=== PATIENT | male | born 1940 | race Caucasian/White ===

== ENCOUNTER 2023-01-04 12:16 | Emergency (ER) | payer MEDICARE, SELFPAY ==
[2023-01-04 12:27] VITALS: BP 105/55; PULSE 75; RESP 16; TEMP 37.2; O2SAT 100
--- NOTE | 2023-01-04 12:44 | ED.URI ---
HPI - URI/Sore Throat General Chief Complaint: Upper Respiratory Infection Stated Complaint: SORE THROAT Source: patient and RN notes reviewed History of Present Illness HPI Narrative: 82 yo M presents to urgent care with complaints of trouble swallowing. Pt states approximately 1 hour ago, he was at his relative's talent show when he tried taking a drink of a Coke and bite of a pretzel. Pt states he was unable to swallow either item due to pain. Pt denies any sore throat, fevers, chills, vomiting, [place], dizziness, weakness, chest pain, SOB, or ear pain. Pt reports some congestion but states this is a chronic issue for him. Related Data Home Medications Medication Instructions Recorded Confirmed No Home Medications 01/04/23 01/04/23 Allergies Allergy/AdvReac Type Severity Reaction Status Date / Time Penicillins Allergy Unknown Unknown Unverified 01/04/23 12:25 Review of Systems Review of Systems: CONSTITUTIONAL: Denies fever, chills, or sweats. EYES: Denies visual changes, redness, or discharge. ENT:trouble swallowing due to pain CARDIOVASCULAR: Denies chest pain, palpitations, or edema. RESPIRATORY: Denies cough or dyspnea. GASTROINTESTINAL: Denies abdominal pain, nausea, vomiting, or diarrhea. GENITOURINARY: Denies dysuria or hematuria. SKIN: Denies rash or itching. MUSCULOSKELETAL: Denies back pain, joint pain, or myalgia. NEUROLOGIC: Denies headache, numbness, or weakness. PMFSH Comments At the time of my signature, I reviewed and agree with the nursing past medical, surgical, social, and family history. There is no relevant family history pertinent to the patient complaint. Exam Narrative: GENERAL: This is a well-nourished, well-developed patient, in no apparent distress. HEAD: normocephalic, atraumatic. EYES: PERRL. Sclera clear/white. Vision is grossly intact. EARS: External ears normal, auditory canals clear and without drainage, TMs normal without perforation. Hearing grossly intact. NOSE: External nose normal with no obvious nasal discharge, nares without redness, no rhinorrhea. THROAT: Mucous membranes moist, posterior pharynx clear. NECK: Neck supple, non-tender without lymphadenopathy, masses or thyromegaly. CARDIOVASCULAR: Regular rate and rhythm without murmurs, gallops, or rubs. RESPIRATORY: Clear to auscultation. Breath sounds equal bilaterally. No wheezes, rales, or rhonchi. GASTROINTESTINAL: Abdomen soft, non-tender, nondistended. Bowel sounds are active. No hepato-splenomegaly, or palpable masses. No guarding. SKIN: warm, intact with no suspicious lesions or rash, good texture and turgor. NEURO: awake, alert, and oriented to person, place and time. There were no obvious focal neurologic abnormalities. EXTREMITIES: No clubbing, cyanosis, or edema. No joint tenderness, effusion, or edema noted. No calf tenderness. Negative Homans sign bilaterally. BACK: Nontender without deformity or crepitance. No flank tenderness. Course Course Level of Care: Express Care Visit Vital Signs Vital signs: Vital Signs Temperature 98.9 F 01/04/23 12:27 Pulse Rate 75 01/04/23 12:27 Respiratory Rate 16 01/04/23 12:27 Blood Pressure 105/55 L 01/04/23 12:27 Pulse Oximetry 100 01/04/23 12:27 Oxygen Delivery Room Air 01/04/23 12:27 Temperature 98.9 F 01/04/23 13:21 Pulse Rate 75 01/04/23 13:21 Respiratory Rate 16 01/04/23 13:21 Blood Pressure 105/55 L 01/04/23 13:21 Pulse Oximetry 100 01/04/23 13:21 Oxygen Delivery Room Air 01/04/23 13:21 reviewed. MDM - URI/Sore Throat MDM Narrative Medical decision making narrative: If you develop any new or worsening symptoms, go to the emergency dept. Rapid strep is negative in the office; however we will send to the lab for confirmation; there is a small percentage chance that it can come back positive; if it is, we will call you in 2-3days; and your prescription will be call in to your pharmacy. However, there is NO indicati
[2023-01-04 13:21] VITALS: BP 105/55; PULSE 75; RESP 16; TEMP 37.2; O2SAT 100
== END 2023-01-04 13:34 | disposition home or self-care (01) ==
PROVIDERS: Emergency Provider Nurse Practitioner Family
DX: J02.9 Acute pharyngitis, unspecified (principal); Z20.822 Contact with and (suspected) exposure to COVID-19
CPT/HCPCS: 87081; 87426; 87880; 99213; C9803; G0463